=== PATIENT | female | born 1940 | race Caucasian/White ===

== ENCOUNTER 2025-01-04 09:42 | Emergency (ER) | payer MEDICARE | END 2025-01-04 11:43 | disposition home or self-care (01) | LOC: NAV ERS 09:42 | DX: S52.502A Unspecified fracture of the lower end of left radius, initial encounter for closed fracture (principal); I10 Essential (primary) hypertension; W06.XXXA Fall from bed, initial encounter | CPT/HCPCS: 29125; 99283 ==